=== PATIENT | female | born 1955 ===

== ENCOUNTER 2020-11-13 16:38 | Emergency (ER) | payer OTHER ==
[~2020-11-13] VITALS: Ht 170.2 cm; Wt 68.0 kg
[2020-11-13] MEDS ORDERED: LOSARTAN-HCTZ1 EAC2 (17:22)
[2020-11-13] MEDS ORDERED: AMLODIPINE-OLM1 EAC2 (17:22)
[2020-11-14] MEDS ORDERED: IVERMECTIN3 MG PO (00:56)
[2020-11-14] MEDS ORDERED: INTESTINEX680 M1 PO (00:56)
[2020-11-14] MEDS ORDERED: ZITHROMAX500 MG PO (00:56)
[2020-11-14] MEDS ORDERED: PEPCID AC20 MG PO (00:56)
== END 2020-11-14 01:52 | disposition home or self-care (01) ==
LOC: ER 16:38
DX: U07.1 COVID-19 (principal); J12.82 Pneumonia due to coronavirus disease 2019; R06.02 Shortness of breath; R50.9 Fever, unspecified; R19.7 Diarrhea, unspecified; R11.0 Nausea

== ENCOUNTER 2020-11-16 12:30 | Outpatient (CLI) | payer OTHER | END 2020-11-16 14:00 | disposition home or self-care (01) | LOC: ASH CLINIC 12:30 | PROVIDERS: ATTEND General Practice | DX: Z23 Encounter for immunization (principal); U07.1 COVID-19 ==

== ENCOUNTER → 2020-11-16 | Emergency (ER) | payer OTHER ==
[~2020-11-16] MED LIST: AMLODIPINE-OLM1 EAC2; INTESTINEX680 M1 PO; IVERMECTIN3 MG PO; LOSARTAN-HCTZ1 EAC2; PEPCID AC20 MG PO; ZITHROMAX500 MG PO
== END | disposition home or self-care (01) ==
LOC: ER 11:42
DX: U07.1 COVID-19 (principal)